=== PATIENT | male | born 1990 | race Two or more races ===

== ENCOUNTER 2018-01-23 09:27 | Emergency (ER) | payer SELFPAY ==
[2018-01-23 09:36] LABS: POC GLUCOSE 116 mg/dL (70-99)
[2018-01-23 09:48] LABS: ADD MAN DIFF? NO
[2018-01-23 09:59] LABS: BASO # 0.1 x10^3/uL (0.0-0.2); BASO % 1 % (0-3); EOS # 0.1 x10^3/uL (0.0-0.7); EOS % 1 % (0-3); HEMATOCRIT 42.6 % (39.0-53.0); HEMOGLOBIN 14.8 g/dL (13.0-17.5); LYMPH # 2.9 x10^3/uL (1.0-4.8); LYMPH % 42 % (24-48); MEAN CORPUSCULAR HEMOGLOBIN 31 pg (25-35); MEAN CORPUSCULAR HGB CONC 35 g/dL (31-37); MEAN CORPUSCULAR VOLUME 89 fL (79-100); MONO # 0.6 x10^3/uL (0.0-1.1); MONO % 9 % (0-9); NEUT # 3.3 x10^3uL (1.8-7.7); NEUT % 47 % (31-73); PLATELET COUNT 171 x10^3/uL (140-400); RED BLOOD COUNT 4.78 x10^6/uL (4.30-5.70); RED CELL DISTRIBUTION WIDTH 13.4 % (11.5-14.5); WHITE BLOOD COUNT 6.9 x10^3/uL (4.0-11.0)
[2018-01-23 10:05] LABS: ANION GAP 11 (6-14); BLOOD UREA NITROGEN 14 mg/dL (8-26); CALCIUM 8.4 mg/dL (8.5-10.1); CARBON DIOXIDE 25 mmol/L (21-32); CHLORIDE 106 mmol/L (98-107); CREATININE 0.9 mg/dL (0.7-1.3); GFR 101.2; GLUCOSE 107 mg/dL (70-99); POTASSIUM 3.7 mmol/L (3.5-5.1); SODIUM 142 mmol/L (136-145)
[2018-01-23 10:11] LABS: ALBUMIN 3.8 g/dL (3.4-5.0); ALK PHOS 81 U/L (46-116); ALT (SGPT) 27 U/L (16-63); AST (SGOT) 20 U/L (15-37); DIRECT BILIRUBIN 0.1 mg/dL (0.0-0.2); MAGNESIUM 1.9 mg/dL (1.8-2.4); TOTAL BILIRUBIN 0.2 mg/dL (0.2-1.0); TOTAL PROTEIN 7.5 g/dL (6.4-8.2)
[2018-01-23 10:18] LABS: NT-PRO BNP 12 pg/mL (0-124); THYROID STIM HORMONE (TSH) 1.891 uIU/mL (0.358-3.74)
[2018-01-23 10:18] LABS: CKMB INDEX 0.7 % (0-4); CKMB MASS 1.7 ng/mL (0.0-3.6); CREATINE KINASE 232 U/L (39-308)
[2018-01-23 10:29] LABS: BILIRUBIN,URINE NEGATIVE (NEG); CLARITY,URINE CLEAR; COLOR,URINE YELLOW; GLUCOSE,URINE NEGATIVE (NEG); NITRITE,URINE NEGATIVE (NEG); PROTEIN,URINE NEGATIVE (NEG-TRACE); UROBILINOGEN,URINE 0.2 mg/dL (0.2 mg/dL)
[2018-01-23 10:41] LABS: BARBITURATES NEG (NEG); BENZODIAZEPINES NEG (NEG); CANNABINOIDS NEG (NEG); COCAINE NEG (NEG); METHADONE NEG (NEG); OPIATES NEG (NEG); PHENCYCLIDINE NEG (NEG)
[2018-01-23 10:45] LABS: AMPHETAMINE/METHAMPHETAMINE NEG (NEG); ETHANOL, URINE POS (NEG)
[2018-01-23 10:52] LABS: BACTERIA,URINE 0 /HPF (0-FEW); RBC,URINE 0 /HPF (0-2); WBC,URINE 0 /HPF (0-4)
[2018-01-23 11:45] LABS: ETHANOL 33 mg/dL (0-10)
[2018-01-23 14:47] LABS: VITAMIN-B12 1024 pg/mL (247-911)
[2018-01-23 14:47] LABS: FOLATE 10.11 ng/ml (3.2-20.0)
== END 2018-01-23 12:13 | disposition left against medical advice (07) ==
LOC: ER 09:27
DX: R20.2 Paresthesia of skin (principal); F41.9 Anxiety disorder, unspecified
CPT/HCPCS: 36415; 70450; 80048; 80076; 80307; 81001; 82553; 82607; 82746; 82962; 83735; 83880; 84100; 84443; 85025; 93005; 99285-25; G0480